=== PATIENT | male | born 1985 | race Caucasian/White ===

== ENCOUNTER 2020-05-27 19:29 | Emergency (ER) | payer SELFPAY ==
[2020-05-27] MEDS ORDERED: BACTROBAN OINT22 GM EXT (22:09)
[2020-05-27] MEDS ORDERED: CEPHALEXIN500 M1 PO (22:09)
== END 2020-05-27 21:35 | disposition home or self-care (01) ==
LOC: ER1 19:29
DX: S66.422A Laceration of intrinsic muscle, fascia and tendon of left thumb at wrist and hand level, initial encounter (principal); S61.012A Laceration without foreign body of left thumb without damage to nail, initial encounter; F17.200 Nicotine dependence, unspecified, uncomplicated; W26.8XXA Contact with other sharp object(s), not elsewhere classified, initial encounter; Z89.022 Acquired absence of left finger(s)
CPT/HCPCS: 12004; 99282